=== PATIENT | female | born 1995 | race Hispanic/Latino ===

== ENCOUNTER 2019-03-12 05:38 | Inpatient (IN) ==
[2019-03-12 06:26] LABS: URINE SOURCE VOIDED
[2019-03-12 06:44] LABS: UR AMPHETAMINES QUAL NONE DETECTED (NONE DETECT); UR BARBITUATES QUAL NONE DETECTED (NONE DETECT); UR BENZODIAZEPIN QUAL NONE DETECTED (NONE DETECT); UR CANNABINOIDS QUAL NONE DETECTED (NONE DETECT); UR COCAINE QUAL NONE DETECTED (NONE DETECT); UR METHADONE QUAL NONE DETECTED (NONE DETECT); UR OPIATES QUAL NONE DETECTED (NONE DETECT); UR OXYCODONE QUAL NONE DETECTED (NONE DETECT); UR PCP QUAL NONE DETECTED (NONE DETECT)
[2019-03-12 06:53] LABS: BASO# 0.02 X1000 (0.0-0.2); BASO% 0.3 % (0.0-0.8); EOS# 0.03 X1000 (0.0-0.7); EOS% 0.5 % (0.0-10.0); HEMATOCRIT 34.7 % (37.0-47.0); HEMOGLOBIN 10.9 g/dL (12.0-16.0); IMM GRAN# 0.02 X1000 (0.0-0.04); IMM GRAN% 0.3 % (0.0-0.5); LYMPH% 25.9 % (20.5-51.1); MCH 28.8 PG (27-31); MCHC 31.4 g/dL (33-37); MCV 91.8 FL (81-99); MONO# 0.53 X1000 (0.11-0.59); MONO% 9.2 % (1.7-9.3); MPV 10.5 FL (7.4-10.4); NEUT# 3.69 X1000 (1.4-6.5); NEUT% 63.8 % (42.2-75.2); PLT 175 X1000 (130-400); RBC 3.78 XMIL (4.2-5.4); RDW 14.4 % (11.5-14.5); WBC 5.79 X1000 (4.8-10.8)
[2019-03-12 06:56] LABS: BILIRUBIN URINE NEGATIVE (NEGATIVE); BLOOD URINE NEGATIVE (NEGATIVE); COLOR STRAW; GLUCOSE URINE NEGATIVE (NEGATIVE); KETONE URINE NEGATIVE (NEGATIVE); LEUKOCYTES URINE NEGATIVE (NEGATIVE); NITRITE URINE NEGATIVE (NEGATIVE); PH URINE 6.5; PROTEIN URINE NEGATIVE (NEGATIVE); SP GRAVITY URINE 1.005; TURBIDITY URINE CLEAR (CLEAR); UROBILINOGEN URINE NORMAL (NORMAL)
[2019-03-12 07:35] LABS: RAPID HIV PRESUMPTIVE NEGATIVE; RPR NON-REACTIVE (NONREACTIVE); RUBELLA SCREEN NON IMMUNE (IMMUNE)
[2019-03-12 15:53] LABS: HIV ANTIBODY SCREEN SEE COMMENTS
[2019-03-13 05:35] LABS: BASO# 0.01 X1000 (0.0-0.2); BASO% 0.1 % (0.0-0.8); EOS# 0.06 X1000 (0.0-0.7); EOS% 0.7 % (0.0-10.0); HEMATOCRIT 31.1 % (37.0-47.0); HEMOGLOBIN 9.7 g/dL (12.0-16.0); IMM GRAN# 0.03 X1000 (0.0-0.04); IMM GRAN% 0.4 % (0.0-0.5); LYMPH# 2.05 X1000 (1.2-3.4); LYMPH% 25.3 % (20.5-51.1); MCHC 31.2 g/dL (33-37); MCV 93.1 FL (81-99); MONO# 0.74 X1000 (0.11-0.59); MONO% 9.1 % (1.7-9.3); MPV 10.9 FL (7.4-10.4); NEUT% 64.4 % (42.2-75.2); PLT 151 X1000 (130-400); RBC 3.34 XMIL (4.2-5.4); RDW 14.6 % (11.5-14.5); WBC 8.09 X1000 (4.8-10.8)
[2019-03-13 08:18] LABS: HEPATITIS B SURFACE ANTIGEN SEE COMMENTS
[2019-03-14 08:06] VITALS: BP 108/62
== END 2019-03-14 10:45 | disposition home or self-care (01) | DRG 807 ==
LOC: OPLD 05:38 → EDSTATUS 05:38 → LD 05:46
PROVIDERS: ADMIT Obstetrics & Gynecology; ATTEND Obstetrics & Gynecology